=== PATIENT | female | born 1985 | race Caucasian/White ===

== ENCOUNTER 2022-03-22 07:45 | Emergency (ER) | payer OTHER ==
[~2022-03-22] VITALS: Ht 157.5 cm; Wt 59.0 kg
[2022-03-22] MEDS ORDERED: KETOROLAC TROMETHAMINE 15 MG/ML VIAL ONE (08:10)
[2022-03-22] MEDS ORDERED: MORPHINE SULFATE INJ 4 MG/ML DISP.SYRIN ONE (08:11)
[2022-03-22] MEDS ORDERED: ONDANSETRON HCL/PF 4 MG/2 ML VIAL ONE (08:11)
--- NOTE | 2022-03-22 08:15 | NUR ---
IV line established at LAC 20g
--- NOTE | 2022-03-22 08:17 | NUR ---
MEDICATED FOR PAIN W/ MORPHINE AND TORADOL IV INDICATED; ZOFRAN IV ADMINISTERED INDICATED FOR C/O NAUSEA.
[2022-03-22 08:18] LABS: BASOPHILS % (AUTO) 0.5 % (0.0-2.0); HEMATOCRIT 43 % (33-45); HEMOGLOBIN 14.3 g/dL (11.5-14.8); LYMPHOCYTES # (AUTO) 2.5 K/uL (0.8-4.8); LYMPHOCYTES % (AUTO) 32.7 % (20.0-44.0); MEAN CORPUSCULAR HGB CONC 33 g/dl (31.0-36.0); MEAN CORPUSCULAR VOLUME 80 fL (82-100); MONOCYTES # (AUTO) 0.5 K/uL (0.1-1.30); NEUTROPHILS # (AUTO) 4.5 K/uL (1.8-8.9); NEUTROPHILS % (AUTO) 59.8 % (43.0-81.0); PLATELET COUNT (AUTO) 249 K/uL (150-450); WHITE BLOOD COUNT (AUTO) 7.5 K/uL (4.3-11.0)
[2022-03-22] MEDS ORDERED: KETOROLAC TROMETHAMINE INJ 30 MG/ML VIAL IV ONE ×2 (08:30→09:30)
[2022-03-22] MEDS ORDERED: MORPHINE SULFATE INJ 2 MG/ML DISP.SYRIN IV ONE ×2 (08:30→09:30)
[2022-03-22] MEDS ORDERED: ONDANSETRON HCL/PF 4 MG/2 ML VIAL IVP ONE (08:30)
[2022-03-22 08:31] LABS: ALBUMIN 4.3 g/dL (3.4-5.0); BILIRUBIN,DIRECT 0.1 mg/dL (0.0-0.2); BILIRUBIN,TOTAL 0.6 mg/dL (0.2-1.0); CALCIUM, SERUM 9.3 mg/dL (8.5-10.1); CREATININE 0.9 mg/dL (0.6-1.3); TOTAL PROTEIN, SERUM 8.5 g/dL (6.4-8.2)
[2022-03-22 08:48] LABS: POTASSIUM 2.7 mmol/L (3.5-5.1)
--- NOTE | 2022-03-22 08:58 | NUR ---
DR PIZANO AWARE OF PT'S POTASSIUM OF 2.7
--- NOTE | 2022-03-22 09:02 | NUR ---
WAIVER SIGNED BY PT AND PLACED IN PT'S CHART
--- NOTE | 2022-03-22 09:08 | NUR ---
PT TAKEN TO RADIOLOGY FOR CT SCAN
[2022-03-22] MEDS ORDERED: MORPHINE SULFATE INJ 2 MG/ML DISP.SYRIN ONE (09:21)
[2022-03-22] MEDS ORDERED: KETOROLAC TROMETHAMINE INJ 30 MG/ML VIAL ONE (09:21)
--- NOTE | 2022-03-22 09:23 | NUR ---
PT RETURNED FROM RADIOLOGY
[2022-03-22] MEDS ORDERED: ONDA4TAB5 PO (09:52)
[2022-03-22] MEDS ORDERED: HYDR-3980 PO (09:52)
[2022-03-22] MEDS ORDERED: IBUP-1957 PO (09:52)
[2022-03-22 10:22] VITALS: BP 122/75
== END 2022-03-22 10:25 | disposition home or self-care (01) ==
LOC: ER 07:45
DX: N20.0 Calculus of kidney (principal); Z79.899 Other long term (current) drug therapy
CPT/HCPCS: 99284; 74176; 96374; 96375; 96376; 85025; 80048; 83690; 80076; 84702; J2270 ×2; J1885 ×2; J2405